=== PATIENT | male | born 2000 | race Caucasian/White ===

== ENCOUNTER 2023-02-07 11:46 | Outpatient (CLI) | payer MEDICAID, SELFPAY | END 2023-02-07 11:47 | disposition home or self-care (01) | LOC: NFLDUCREF 11:46 | PROVIDERS: PCP Nurse Practitioner Family; Visit Provider Nurse Practitioner Family | DX: M79.605 Pain in left leg (principal); R79.89 Other specified abnormal findings of blood chemistry | CPT/HCPCS: 85379 ==

== ENCOUNTER 2023-03-07 20:35 | Emergency (ER) | payer MEDICAID, SELFPAY ==
[2023-03-07 20:45] VITALS: BP 143/92; PULSE 60; RESP 20; TEMP 36.4; O2SAT 98; BMI 36.9
--- NOTE | 2023-03-07 20:52 | ED.LOWEXIN ---
HPI - Extremity Injury (Lower) General Time Seen by Provider: 20:52 Date Seen: 03/07/23 Chief Complaint: Extremity Pain/Injury, Lower Stated Complaint: leg pain post fracture Time Seen by Provider: 03/07/23 20:52 Source: patient and RN notes reviewed Mode of arrival: ambulatory Limitations: no limitations History of Present Illness HPI Narrative: Patient is a very pleasant 22-year-old male who had suffered a fibular fracture on January 31 who comes into the ER for worsening pain. Patient notes that he suffered a fibular fracture while on a swing. He actually was not seen until the at which time they did note a fracture. He followed up with Dr. Valdovinos of the [facility]. Was placed in a boot and did have a crutch. He notes he has been doing well up until 3-4 days ago we when he began experiencing increasing pain. He does state that he has been standing for extended periods with the assistance of the boot at work. Up to 7-8 hours at a time. He notes the pain seems to have changed and is now more in his ankle as well as in his calf. He reports no shortness of breath or history of DVT. He has not had any fever or chills. He does agree that movement increases the pain in his ankle. His mother states that last night she did use some CBD cream and today he had called her from work and she was bringing that to him. She notes that her son was actually crying lying on the floor because the pain was so significant. They are wondering if something else is wrong. Related Data Home Medications Medication Instructions Recorded Confirmed fluoxetine 40 mg capsule 40 mg PO QAM 02/07/23 03/07/23 Allergies Allergy/AdvReac Type Severity Reaction Status Date / Time No Known Drug Allergies Allergy Verified 03/07/23 20:45 Review of Systems Status of ROS: Reports: 10 or more systems reviewed and unremarkable except as noted in History and below Cardio: Denies: shortness of breath with exertion Resp: Denies: shortness of breath PFSH PFS Medical History Dental abscess ?K04.7 - Periapical abscess without sinus (ICD-10) Exam Narrative: Exam Narrative: Patient is alert and oriented. He does look to his mom offer support while in room 5 in the ED. His speech is normal. Mentation normal. No evidence of respiratory distress. Removal of the lower extremity brace shows him to have some mild erythema at the ankle. He is able to dorsiflex and plantar flex without significant difficulty. He has no significant pain with palpation of the calf. There does appear to be increased discomfort with palpation over the fibula. Const: Vital Signs, click to edit/add: Vital Signs - 24 hr 03/07/23 20:45 Temperature 97.6 F Pulse Rate [Pulse Oximeter] 60 Respiratory Rate 20 Blood Pressure [Ri ght Upper Arm] 143/92 H Pulse Oximetry 98 Oxygen Delivery Me thod Room Air Documenting provider has reviewed patient's vital signs: yes Course Course ED Course: At this time patient cannot recall any inciting event 3-4 days ago that would increases pain. With the month in a dilute and restricted movement I do think we should ultrasound to ensure there is no evidence of DVT as but patient describes is pain out of proportion to what he should be feeling 1 month outside of an injury. Will repeat the x-rays of the fibula as well as ankle. Vital Signs Vital signs: Initial Vital Signs Temperature 97.6 F 03/07/23 20:45 Temperature Source Temporal Artery Scan 03/07/23 20:45 Pulse Rate 60 03/07/23 20:45 Respiratory Rate 20 03/07/23 20:45 Blood Pressure 143/92 H 03/07/23 20:45 Blood Pressure Mean 109 H 03/07/23 20:45 Blood Pressure Position Sitting 03/07/23 20:45 Pulse Oximetry 98 03/07/23 20:45 Oxygen Delivery Method Room Air 03/07/23 20:45 Vital Signs Temperature 97.6 F 03/07/23 20:45 Pulse Rate 60 03/07/23 20:45 Respiratory Rate 20 03/07/23 20:45 Blood Pressure 143/92 H 03/07/23 20:45 Pulse Oximetry 98 03/07/23 20:45 Oxygen Delivery Method Room Air 03/07/23 20:45 Temperature 97.6 F 03/07/23 20:45 Pulse Rate 60 03/07/23 20:45 Respiratory Rate 20 03/07/23 20:45 Blood Pressure 143/92 H 03/07/23 20:45 Pulse Oximetry 98 03/07/23 20:45 Oxygen Delivery Method Room Air 03/07/23 20:45 MDM - Extremity Injury (Lower) MDM Narrative Medical decision making narrative: 1. Left leg pain-I suspect this is from extended standing at work up to 7 hours at a time. Patient's fibular fracture appears to be healing. X-rays tonight did not reveal any other fracture. Ultrasound was negative for DVT 2. [id number] with the orthopedic surgeon which her scheduled to see on WednesdayMarch 09. Return to the ER as needed. You may use ibuprofen or Tylenol as needed for pain. Medical Records Attestation: I reviewed the patient's medical records. Imaging Data Venous US: Attestation: I have reviewed the pertinent imaging results. Radiologist's impression: Deep veins: The left common femoral, femoral, popliteal, and visualized calf veins are fully compressible, demonstrate normal color flow, and normal response to mechanical augmentation. The Duplex Doppler waveforms are normal in appearance. Superficial veins: The visualized greater saphenous and superficial veins of the leg and calf are unremarkable. Soft tissue: No masses or cysts are identified. No adenopathy is seen. IMPRESSION: 1. No sonographic evidence of acute deep venous thrombosis seen. Tib-fib x-ray: Attestation: I have reviewed the pertinent imaging results. My impression: Healing fibular fracture. Radiologist's impression: Bone: There is a minimally displaced transverse fracture in the mid diaphysis of the fibula with surrounding callus bone formation. The frontal and lateral views do not include the distal tibia and fibula. Joint: The visualized knee and ankle joints are unremarkable. No significant joint effusion is seen. Soft tissue: Unremarkable. No radiopaque foreign bodies are seen. IMPRESSION: 1. There is a minimally displaced transverse fracture in the mid diaphysis of the fibula with surrounding callus bone formation. Findings are consistent with osseous healing. Left ankle x-ray: Attestation: I have reviewed the pertinent imaging results. My impression: No obvious fractures noted. Radiologist's impression: Bone: No acute fractures or aggressive bone lesions are identified. Joint: The ankle mortise joint and the visualized hindfoot joints are unremarkable in appearance. No significant ankle effusion is seen. Soft tissue: The Kager fat pad and the Achilles` tendon are normal in appearance. No radiopaque foreign bodies are seen. IMPRESSION: 1. No acute osseous injuries or abnormalities are noted. Discharge Plan Discharge Clinical Impression: Left leg pain Patient Disposition: Home w/ Parent or Adult Condition: Improved Additional Instructions: Follow-up with orthopedics as scheduled on Wednesday. I will call you if the x-ray read tonight is alarming. Try to stay off legs for extended periods of time. Try to increase crutch use for lightening weight-bearing on that leg. Return to the ER as needed for worsening symptoms. Ibuprofen or Tylenol as needed for pain. Prescriptions: No Action fluoxetine 40 mg capsule 40 mg PO QAM Follow Up/Referrals: Halie Davies DO [Primary Care Provider] - Stand Alone Forms: [place] [employer] Info Instructions
--- NOTE | 2023-03-07 21:01 | CRLHL7_ITS ---
For Patients: As a result of the Century Cures Act, medical imaging exams and procedure reports are released immediately into your electronic medical record. You may view this report before your referring provider. If you have questions, please contact your health care provider. INDICATION: Increasing leg pain post fracture TECHNIQUE: Ultrasound venous duplex left lower extremity. Real-time donis-scale (B mode 2D), color Doppler, and spectral Doppler imaging were performed with compression and augmentation. COMPARISON: None FINDINGS: Deep veins: The left common femoral, femoral, popliteal, and visualized calf veins are fully compressible, demonstrate normal color flow, and normal response to mechanical augmentation. The Duplex Doppler waveforms are normal in appearance. Superficial veins: The visualized greater saphenous and superficial veins of the leg and calf are unremarkable. Soft tissue: No masses or cysts are identified. No adenopathy is seen. IMPRESSION: 1. No sonographic evidence of acute deep venous thrombosis seen. Dictated by: Teddy Nguyen MD @ 03/07/2023 22:10:58 (Electronically Signed)
--- NOTE | 2023-03-07 21:01 | CRLHL7_ITS ---
For Patients: As a result of the Century Cures Act, medical imaging exams and procedure reports are released immediately into your electronic medical record. You may view this report before your referring provider. If you have questions, please contact your health care provider. INDICATION: Ankle pain, history of fibular fracture. 22. 23 TECHNIQUE: Ankle radiograph 2 views left COMPARISON: None FINDINGS: Bone: No acute fractures or aggressive bone lesions are identified. Joint: The ankle mortise joint and the visualized hindfoot joints are unremarkable in appearance. No significant ankle effusion is seen. Soft tissue: The Kager fat pad and the Achilles` tendon are normal in appearance. No radiopaque foreign bodies are seen. IMPRESSION: 1. No acute osseous injuries or abnormalities are noted. Dictated by: Teddy Nguyen MD @ 03/07/2023 23:06:15 (Electronically Signed)
--- NOTE | 2023-03-07 21:01 | CRLHL7_ITS ---
For Patients: As a result of the Cures Act, medical imaging exams and procedure reports are released immediately into your electronic medical record. You may view this report before your referring provider. If you have questions, please contact your health care provider. INDICATION: Leg pain, history of fibular fracture TECHNIQUE: Tibia-fibula radiograph 2 views left COMPARISON: 02/07/2023 FINDINGS: Bone: There is a minimally displaced transverse fracture in the mid diaphysis of the fibula with surrounding callus bone formation. The frontal and lateral views do not include the distal tibia and fibula. Joint: The visualized knee and ankle joints are unremarkable. No significant joint effusion is seen. Soft tissue: Unremarkable. No radiopaque foreign bodies are seen. IMPRESSION: 1. There is a minimally displaced transverse fracture in the mid diaphysis of the fibula with surrounding callus bone formation. Findings are consistent with osseous healing. Dictated by Teddy Nguyen MD @ 03/07/2023 11:05:36 PM Dictated by: Teddy Nguyen MD @ 03/07/2023 23:05:48 (Electronically Signed)
== END 2023-03-07 23:28 | disposition home or self-care (01) ==
PROVIDERS: Emergency Provider Family Medicine; PCP Family Medicine
DX: M79.605 Pain in left leg (principal); X50.1XXA Overexertion from prolonged static or awkward postures, initial encounter
CPT/HCPCS: 73590; 73600; 93971; 99283; 99284